=== PATIENT | female | born 1955 | race Caucasian/White ===

== ENCOUNTER 2017-11-01 12:46 | Emergency (ER) | payer OTHER ==
[~2017-11-01] VITALS: Ht 162.6 cm; Wt 90.7 kg
[2017-11-01 12:53] VITALS: Ht 162.6 cm; Wt 90.7 kg
[2017-11-01 13:40] LABS: BASOPHIL % 0.2 % (0-2); PLATELET COUNT 298 x10^3mcL (130-400); RED CELL DISTRIBUTION WIDTH 13.8 % (11.5-14.5)
[2017-11-01 13:44] LABS: CALCIUM 8.6 mg/dL (8.5-10.1); CARBON DIOXIDE 27.6 mmol/L (21-32); CHLORIDE SERUM 101 mmol/L (98-107); CREATININE SERUM 0.8 mg/dL (0.6-1.0); GFR1 > 60 mL/min; GLUCOSE SERUM 111 mg/dL (74-106); POTASSIUM SERUM 3.2 mmol/L (3.5-5.1); SODIUM SERUM 137 mmol/L (136-145)
[2017-11-01 13:49] LABS: ALKALINE PHOSPHATASE 81 U/L (46-116); ALT/SGPT 19 U/L (14-59); AMYLASE 32 U/L (25-115); AST/SGOT 8 U/L (15-37); BILIRUBIN TOTAL 0.6 mg/dL (0.20-1.00); HDL CHOLESTEROL 55 mg/dL (40-60); LIPASE 96 IU/L (73-393); TOTAL PROTEIN, SERUM 6.6 g/dL (6.4-8.2)
[2017-11-01 13:50] LABS: ALBUMIN 3.3 g/dL (3.4-5.0); CHOLESTEROL 133 mg/dL (<200)
[2017-11-01 14:52] LABS: microscopic required? NO
[2017-11-01 15:04] LABS: urine erythrocyte NEGATIVE (NEGATIVE)
[2017-11-01 15:17] LABS: AMPHETAMINE QUAL UR NONE DETECTED (See below)
[2017-11-01 16:46] VITALS: BP 142/71
== END 2017-11-01 16:46 | disposition left against medical advice (07) ==
LOC: ED 12:46
PROVIDERS: Emergency Medicine
DX: J32.4 Chronic pansinusitis (principal); T17.0XXA Foreign body in nasal sinus, initial encounter; R07.89 Other chest pain; E87.6 Hypokalemia; I10 Essential (primary) hypertension; E78.00 Pure hypercholesterolemia, unspecified; E03.9 Hypothyroidism, unspecified; X58.XXXA Exposure to other specified factors, initial encounter; Y93.89 Activity, other specified; Y92.89 Other specified places as the place of occurrence of the external cause; Y99.8 Other external cause status
CPT/HCPCS: 83880; J1885; J2550; J3010; Q0092